=== PATIENT | male | born 1955 | race Caucasian/White ===

== ENCOUNTER 2016-10-14 10:19 | Emergency (ER) | payer OTHER ==
[~2016-10-14] VITALS: Ht 180.3 cm; Wt 125.0 kg
[~2016-10-14 10:19] MED LIST: CEPH-443 PO; SULF1TAB31 PO
[2016-10-14 10:27] VITALS: Ht 180.3 cm; Wt 125.0 kg
[2016-10-14] MEDS ORDERED: LIDOCAINE 2% (MDV) 20 ML INJ INJ ONE (12:30)
[2016-10-14] MEDS ORDERED: SULF1TAB31 PO (13:33)
[2016-10-14] MEDS ORDERED: CEPH-443 PO (13:33)
[2016-10-14 13:46] VITALS: BP 141/78; PULSE 67; RESP 18; TEMP 98
--- NOTE | 2016-10-14 19:48 | ERD ---
ER Documentation Chief Complaint Date/Time DATE: 10/14/16 TIME: 19:44 Chief Complaint POSSIBLE IUNSECT BITE @ RIGHT FOREARM HPI This is a 61-year-old male presents to the ER with a spider bite that occurred on Friday. Patient states that he was bitten by a spider to his right forearm and the area became very itchy. Patient lives in a trailer in the back of the [facility] yard and states that his living situation is not hygienic. Area became red and swollen, and has not developed scabbing. Patient denies any fevers however he feels fatigued and states he had chills at night. Patient denies any numbness or tingling to his forearm he only has pain around the area of the bite. ROS 12 point review of systems was done, all negative except per HPI. Medications Home Meds Active Scripts Cephalexin* (Keflex*) 500 Mg Capsule, 500 MG PO BID for 7 Days, CAP Prov:CHANNING,SAUD C 10/14/16 Sulfamethoxazole/Trimethoprim* (Bactrim Ds* Tablet) 1 Each Tablet, 1 TAB PO BID , #14 TAB Prov:SAUD SNELL C 10/14/16 Cephalexin* (Keflex*) 500 Mg Capsule, 500 MG PO QID for 10 Days, CAP Prov:HANSEL DALEY MD 03/07/15 Sulfamethoxazole-Trimethoprim (Bactrim DS Tablet) 800-160 Mg Tab, 1 TAB PO BID for 10 Days, TAB Prov:HANSEL DALEY MD 03/07/15 Allergies Allergies: Coded Allergies: No Known Allergy (Unverified , 03/07/15) PMhx/Soc History of Surgery: No Anesthesia Reaction: No Hx Neurological Disorder: No Hx Respiratory Disorders: No Hx Cardiac Disorders: No Hx Psychiatric Problems: No Hx Miscellaneous Medical Probl: Yes (HEP C) Hx Alcohol Use: No Hx Substance Use: No Hx Tobacco Use: Yes Smoking Status: Never smoker Physical Exam Vitals Vital Signs Date Time Temp Pulse Resp B/P Pulse Ox O2 Delivery O2 Flow Rate FiO2 10/14/16 13:46 98.0 67 18 141/78 96 Room Air 10/14/16 10:27 97.7 63 18 144/85 94 Physical Exam GENERAL: The patient is well developed and appropriate for usual state of health , in no apparent distress. HEENT: Atraumatic. CHEST: Clear to auscultation bilaterally. There are no rales, wheezes or rhonchi. HEART: Regular rate and rhythm. No murmurs, clicks, rubs or gallops. NEURO: Alert and oriented. SKIN: There is a 2 cm x 3 cm small abscess with scabbing to the right forearm. Area is fluctuant. Results 24 hrs Current Medications Medications (Trade) Dose Ordered Sig/Reshma Route PRN Reason Start Time Stop Time Status Last Admin Dose Admin Lidocaine (Xylocaine 2% (Mdv) 20 ml) 20 ml ONCE ONCE INJ 10/14/16 12:30 10/14/16 12:31 DC Procedures/MDM This patient was examined by myself and by Dr. Isis kruse. Patient does appear to have an infected bug bite. Abscess Incision and Drainage with irrigation by me: Location: Right forearm Anesthesia: local 1% Lidocaine Technique: Irrigated. Disrupted loculations w/ instrumentation Packing: Quarter inch iodoform gauze Complications: Neurovascularly intact post procedure 48 hour wound check. Scar minimization instructions given. Patient's skin symptoms have stabilized while they have been evaluated in the department and are appropriate for outpatient care and work up. Exam and w/u not consistent w/ sepsis, deep space infection, or foreign body. Patient will be sent home with Bactrim and Keflex. He is to follow-up with his primary care doctor within 1-2 days return to ER sooner if symptoms worsen my medical decision making was shared with the patient he understands and agrees with plan Departure Diagnosis: Primary Impression: Infected bite wound Condition: Stable Patient Instructions: Insect Sting/Bite, Infected Referrals: ADAM EVANS (PCP) Additional Instructions: Call your primary care doctor TOMORROW for an appointment during the next 1-2 days.See the doctor sooner or return here if your condition worsens before your appointment time. SAUD SNELL Oct 14, 2016 19:48
== END 2016-10-14 13:47 | disposition home or self-care (01) ==
LOC: FTE 10:19
DX: S50.861A Insect bite (nonvenomous) of right forearm, initial encounter (principal); L02.413 Cutaneous abscess of right upper limb; W57.XXXA Bitten or stung by nonvenomous insect and other nonvenomous arthropods, initial encounter; Y92.096 Garden or yard of other non-institutional residence as the place of occurrence of the external cause
CPT/HCPCS: 10061; Z7502; Z7610